=== PATIENT | female | born 1995 | race Caucasian/White ===

== ENCOUNTER 2016-10-03 00:22 | Emergency (ER) | payer BC ==
[2016-10-03 01:48] VITALS: BP 127/88
== END 2016-10-03 01:48 | disposition home or self-care (01) ==
LOC: ED 00:22
DX: S93.601A Unspecified sprain of right foot, initial encounter (principal); Z79.3 Long term (current) use of hormonal contraceptives; X50.1XXA Overexertion from prolonged static or awkward postures, initial encounter; Y93.39 Activity, other involving climbing, rappelling and jumping off; Y92.89 Other specified places as the place of occurrence of the external cause; Y99.8 Other external cause status
CPT/HCPCS: Q0092